=== PATIENT | female | born 1940 | race Caucasian/White ===

== ENCOUNTER 2018-08-14 17:00 | Emergency (ER) | payer OTHER ==
[~2018-08-14] VITALS: Ht 167.6 cm; Wt 81.7 kg
[~2018-08-14 17:00] MED LIST: ACET325 PO; BISA5EC PO; GLYCAS PR; LEVSOD150 PO; [UNRECOGNIZED DRUG - OTHER]
[2018-08-14 17:37] LABS: Source, Urine Clean Catch
[2018-08-14 17:51] LABS: Appearance, Urine Turbid (Clear); Bilirubin, Urine Neg (Neg); Blood, Urine 5+ (Neg); Color, Urine Yellow (P-Yellow); Glucose Qualitative, Urine Neg (Neg); Ketones, Urine 1+ (Neg); Leukocyte Esterase, Urine 3+ (Neg); Nitrite, Urine Pos (Neg); Protein, Urine 3+ (Neg); Urobilinogen, Urine 1+ (Normal)
[2018-08-14 18:11] LABS: BASOPHILS ABSOLUTE AUTO 0.03 K/mm3 (0.00-0.23); BASOPHILS PERCENT AUTO 0 % (0-2); EOSINOPHILS ABSOLUTE AUTO 0.16 K/mm3 (0.00-0.68); EOSINOPHILS PERCENT AUTO 2 % (0-6); Hematocrit 40.8 % (33.0-51.0); Hemoglobin 13.5 g/dL (11.5-16.0); IMMATURE GRAN ABSOLUTE AUTO 0.01 K/mm3 (0.00-0.10); IMMATURE GRAN PERCENT AUTO 0 % (0-1); LYMPHOCYTES ABSOLUTE AUTO 1.98 K/mm3 (0.84-5.20); LYMPHOCYTES PERCENT AUTO 28 % (21-46); MONOCYTES ABSOLUTE AUTO 0.55 K/mm3 (0.16-1.47); MONOCYTES PERCENT AUTO 8 % (4-13); Mean Corpuscular HGB Conc 33.1 g/dL (31.5-36.5); Mean Corpuscular Volume 94 fL (80-100); Mean Platelet Volume 8.9 fL (9.1-12.4); NEUTROPHILS ABSOLUTE AUTO 4.34 K/mm3 (1.96-9.15); NEUTROPHILS PERCENT AUTO 61 % (41-73); Platelet Count 195 K/mm3 (150-400); RDW Coefficient Variation 15.1 % (11.7-14.2); Red Blood Cell Count 4.35 M/mm3 (3.80-5.20); White Blood Cell Count 7.07 K/mm3 (4.00-11.30)
[2018-08-14 18:23] LABS: White Blood Cells, Urine TNTC /hpf (0-5)
[2018-08-14 18:24] LABS: Bacteria Many /hpf; Squamous Epithelial Cells Few /hpf (Few)
[2018-08-14 18:28] LABS: International Normalized Ratio 1.05; Prothrombin Time Results 10.8 Sec (9.7-11.5)
[2018-08-14 18:33] LABS: Alanine Aminotransfer (ALT/SGP 40 U/L (12-78); Albumin, Blood 3.9 g/dL (3.4-5.0); Alk Phos 69 U/L (50-136); Anion Gap 7 mmol/L (6-16); Aspartate Aminotrans (AST/SGOT 71 U/L (12-37); Bilirubin, Total 0.5 mg/dL (0.1-1.0); Blood Urea Nitrogen 25 mg/dL (8-24); Bun/Creatinine Ratio 17.6 (12.0-20.0); CO2, Blood 27 mmol/L (21-32); Calcium, Blood 9.1 mg/dL (8.5-10.1); Chloride, Blood 108 mmol/L (98-108); Creatinine, Blood 1.42 mg/dL (0.40-1.00); Ethanol (Alcohol), Blood, Med <3 mg/dL; Globulin, Blood 3.8 g/dL (2.2-4.0); Glomerular Filtration Rate 38 (60-); Glucose, Blood 95 mg/dL (70-99); Potassium, Blood 3.2 mmol/L (3.5-5.5); Sodium, Blood 142 mmol/L (136-145); Total Protein, Blood 7.7 g/dL (6.4-8.2)
[2018-08-14] MEDS ORDERED: Synthroid100 MCG PO (19:29)
[2018-08-14] MEDS ORDERED: Keflex500 MG PO (19:29)
== END 2018-08-14 20:47 | disposition home or self-care (01) ==
LOC: ER 17:00
PROVIDERS: Physician Assistant
DX: N39.0 Urinary tract infection, site not specified (principal); I51.7 Cardiomegaly; E03.9 Hypothyroidism, unspecified; I10 Essential (primary) hypertension; Z79.899 Other long term (current) drug therapy
CPT/HCPCS: 36415; 51701; 70450; 71045; 80053; 81001; 83880; 84439; 84443; 85025; 85610; 87077; 87086; 87186; 93005; 93010; 96361; 96365; 99285-25; G0480; J0696; J7120

== ENCOUNTER 2018-08-25 17:00 | Inpatient (IN) | payer OTHER ==
[~2018-08-25] VITALS: Ht 167.6 cm; Wt 93.7 kg
[~2018-08-25 17:00] MED LIST changes: +Keflex500 MG PO; +Synthroid100 MCG PO
[2018-08-25 17:39] LABS: Source, Urine Clean Catch
[2018-08-25 17:49] LABS: Appearance, Urine Clear (Clear); Bilirubin, Urine Neg (Neg); Blood, Urine 1+ (Neg); Color, Urine Amber (P-Yellow); Glucose Qualitative, Urine Neg (Neg); Ketones, Urine Neg (Neg); Leukocyte Esterase, Urine Neg (Neg); Nitrite, Urine Neg (Neg); Protein, Urine 2+ (Neg); Urobilinogen, Urine 1+ (Normal)
[2018-08-25 17:51] LABS: BASOPHILS ABSOLUTE AUTO 0.04 K/mm3 (0.00-0.23); BASOPHILS PERCENT AUTO 0 % (0-2); EOSINOPHILS ABSOLUTE AUTO 0.03 K/mm3 (0.00-0.68); EOSINOPHILS PERCENT AUTO 0 % (0-6); Hemoglobin 12.4 g/dL (11.5-16.0); IMMATURE GRAN PERCENT AUTO 1 % (0-1); LYMPHOCYTES ABSOLUTE AUTO 1.05 K/mm3 (0.84-5.20); LYMPHOCYTES PERCENT AUTO 6 % (21-46); MONOCYTES PERCENT AUTO 5 % (4-13); Mean Corpuscular HGB Conc 32.6 g/dL (31.5-36.5); Mean Corpuscular Volume 95 fL (80-100); Mean Platelet Volume 9.4 fL (9.1-12.4); NEUTROPHILS ABSOLUTE AUTO 14.68 K/mm3 (1.96-9.15); NEUTROPHILS PERCENT AUTO 87 % (41-73); Platelet Count 212 K/mm3 (150-400); RDW Coefficient Variation 15.7 % (11.7-14.2)
[2018-08-25 17:58] LABS: Bacteria Not Seen /hpf; Red Blood Cells, Urine Not Seen /hpf (0-2); Squamous Epithelial Cells Many /hpf (Few); White Blood Cells, Urine 0-2 /hpf (0-5)
[2018-08-25 18:04] LABS: Albumin, Blood 3.3 g/dL (3.4-5.0); Albumin/Globulin Ratio 0.8 (0.8-1.8); Bilirubin, Total 1.9 mg/dL (0.1-1.0); Bun/Creatinine Ratio 36.2 (12.0-20.0); Calcium, Blood 8.3 mg/dL (8.5-10.1); Creatinine, Blood 0.97 mg/dL (0.40-1.00); Potassium, Blood 2.9 mmol/L (3.5-5.5); Total Protein, Blood 7.3 g/dL (6.4-8.2)
[2018-08-25 19:48] LABS: Free Thyroxine 0.93 ng/dL (0.70-1.60)
[2018-08-25 19:49] LABS: Triiodothyronine, Free 1.02 pg/mL (2.18-3.98)
[2018-08-26 05:37] LABS: Hematocrit 34.5 % (33.0-51.0); Hemoglobin 11.2 g/dL (11.5-16.0); Mean Corpuscular HGB 31.8 pg (26.0-34.0); Mean Corpuscular HGB Conc 32.5 g/dL (31.5-36.5); Mean Corpuscular Volume 98 fL (80-100); Mean Platelet Volume 9.4 fL (9.1-12.4); Platelet Count 177 K/mm3 (150-400); RDW Standard Deviation 57.4 fL (35.1-46.3); Red Blood Cell Count 3.52 M/mm3 (3.80-5.20); White Blood Cell Count 15.11 K/mm3 (4.00-11.30)
[2018-08-26 05:53] LABS: Alanine Aminotransfer (ALT/SGP 25 U/L (12-78); Albumin, Blood 2.9 g/dL (3.4-5.0); Albumin/Globulin Ratio 0.8 (0.8-1.8); Alk Phos 62 U/L (50-136); Anion Gap 8 mmol/L (6-16); Aspartate Aminotrans (AST/SGOT 27 U/L (12-37); Bilirubin, Total 1.2 mg/dL (0.1-1.0); Blood Urea Nitrogen 35 mg/dL (8-24); CO2, Blood 24 mmol/L (21-32); Calcium, Blood 7.3 mg/dL (8.5-10.1); Chloride, Blood 116 mmol/L (98-108); Creatinine, Blood 0.92 mg/dL (0.40-1.00); Globulin, Blood 3.5 g/dL (2.2-4.0); Glomerular Filtration Rate >60 (60-); Glucose, Blood 103 mg/dL (70-99); Potassium, Blood 3.2 mmol/L (3.5-5.5); Sodium, Blood 148 mmol/L (136-145); Total Protein, Blood 6.4 g/dL (6.4-8.2)
--- NOTE | 2018-08-26 07:37 | NUR ---
PT NEW ADMIT THIS SHIFT FOR PERF SIGMOID COLON. PT VSS SINCE ARRIVING TO FLOOR. HR AFIB 60'S. 2LO2 NC PLACED TO KEEP SATS >90% ABD MOD DISTENDED, PT MED FOR PAIN X1, DENIED N/V, IS PASSING FLATUS AND UNFORMED BM. PT NPO, IVF AND ABX CONT PER ORDERS. PT ALERT, IS CONFUSED AT TIMES. PT USING CALL LIGHT AT TIMES, BED ALARM ON FOR SAFETY. SURG CONSULT CALLED IN, REP GIVEN TO DAY RN.
--- NOTE | 2018-08-26 14:48 | NUR ---
patient gave permission to this clinical nursing professor to observe and assist with her care on 08/27/2018 from [id number].
--- NOTE | 2018-08-26 17:01 | NUR ---
SHIFT SUMMARY PT HAS HAD NO CHANGES THIS SHIFT. CONTINUES TO HAVE MOD ABD DISTENTION, PAIN, AND SLIGHTLY NAUSEATED THIS SHIFT. DENIES PASSING FLATUS OR BM. PT WAS REFUSING SURGICAL INTERVENTION. HOWEVER, NOW HAS DECIDED THAT SHE WOULD LIKE TO GO FORWARD WITH SURGERY. IVF RUNNING PER EMAR. MEDICATED WITH 25 FENT AND 4MG ZOFRAN ONCE THIS SHIFT.
[2018-08-27 05:42] LABS: BASOPHILS ABSOLUTE AUTO 0.02 K/mm3 (0.00-0.23); BASOPHILS PERCENT AUTO 0 % (0-2); EOSINOPHILS ABSOLUTE AUTO 0.05 K/mm3 (0.00-0.68); EOSINOPHILS PERCENT AUTO 0 % (0-6); Hematocrit 32.3 % (33.0-51.0); Hemoglobin 10.4 g/dL (11.5-16.0); IMMATURE GRAN ABSOLUTE AUTO 0.08 K/mm3 (0.00-0.10); IMMATURE GRAN PERCENT AUTO 1 % (0-1); LYMPHOCYTES ABSOLUTE AUTO 1.13 K/mm3 (0.84-5.20); LYMPHOCYTES PERCENT AUTO 10 % (21-46); MONOCYTES ABSOLUTE AUTO 0.66 K/mm3 (0.16-1.47); MONOCYTES PERCENT AUTO 6 % (4-13); Mean Corpuscular HGB 31.8 pg (26.0-34.0); Mean Corpuscular HGB Conc 32.2 g/dL (31.5-36.5); Mean Corpuscular Volume 99 fL (80-100); Mean Platelet Volume 9.3 fL (9.1-12.4); NEUTROPHILS ABSOLUTE AUTO 9.59 K/mm3 (1.96-9.15); NEUTROPHILS PERCENT AUTO 83 % (41-73); Platelet Count 193 K/mm3 (150-400); RDW Coefficient Variation 16.3 % (11.7-14.2); RDW Standard Deviation 59.7 fL (35.1-46.3); Red Blood Cell Count 3.27 M/mm3 (3.80-5.20); White Blood Cell Count 11.53 K/mm3 (4.00-11.30)
[2018-08-27 06:11] LABS: Albumin, Blood 2.5 g/dL (3.4-5.0); Anion Gap 9 mmol/L (6-16); Blood Urea Nitrogen 28 mg/dL (8-24); Bun/Creatinine Ratio 32.4 (12.0-20.0); CO2, Blood 23 mmol/L (21-32); Calcium, Blood 7.4 mg/dL (8.5-10.1); Chloride, Blood 117 mmol/L (98-108); Creatinine, Blood 0.86 mg/dL (0.40-1.00); Glomerular Filtration Rate >60 (60-); Glucose, Blood 138 mg/dL (70-99); Magnesium, Blood 2.5 mg/dL (1.6-2.4); Phosphorus, Blood 1.7 mg/dL (2.5-4.9); Potassium, Blood 3.2 mmol/L (3.5-5.5); Sodium, Blood 149 mmol/L (136-145)
--- NOTE | 2018-08-27 07:51 | NUR ---
SUMMARY: PERFORATED COLON ANTICIPATE TO GO TO SURGERY TODAY. MAINTAINS NPO STATUS AND IV PATENCY. VSS, AFEBRILE. DENIES PAIN, N/V. NO ACUTE CHANGED THIS SHIFT.
--- NOTE | 2018-08-27 10:34 | NUR ---
Received permission from patient to access her chart and administer care as needed.
--- NOTE | 2018-08-27 13:36 | NUR ---
History, Chart, Medications and Allergies reviewed before start of procedure. Patient confirms NPO status and agrees with scheduled surgery.
--- NOTE | 2018-08-27 15:42 | NUR ---
08/27/18 1542 Dilia Rollins PT ON SCHEDULED ANTIBIOTIC
--- NOTE | 2018-08-27 18:47 | NUR ---
PT TO PACU ON VENT DR HAMLIN AND [facility] AT BEDSIDE.
--- NOTE | 2018-08-27 19:19 | NUR ---
TRANSFER PT BEING TRANSFERED TO ICU FROM [place]. ATTEMPTED TO CALL REPORT AT 1845.
--- NOTE | 2018-08-27 19:25 | NUR ---
PT ARRIVED TO ICU 12 FROM PACU. PT IS INTUBATED. NO SEDATION OR PAIN MEDS ORDERED. SPOKE WITH DR. HALL IN PERSON WHO WILL BE PUTTING IN ORDERS. ALSO CONSULT FOR DR. SANCHEZ THAT IS BEING CALLED TO HIS CELL PHONE NOW. PT IS ABLE TO NOD HEAD TO QUESTIONS APPROPRIATELY. FOLLOWING SOME SIMPLE COMMANDS. PT WILL GRAB AT ABD AND NODS YES TO PAIN. WILL MEDICATE WHEN POSSIBLE.
--- NOTE | 2018-08-27 19:34 | NUR ---
TRANSFERED TO ICU WHEN ROOM AVAILABLE PER DR JOSHUA INSTUCTIONS. RT AT BEDSIDE WITH 2 RN'S VENT AND MONITOR IN PLACE . NO CHANGES ACCURED DURING TRANSPORT REPORT GIVEN TO PHAM LOGAN. DR HALL AWARE OF PT TRANSFER TO ICU PREVENA INTACT . KIESHA DRNG LIGHT PINK FLUID . OSTOMY WITH NO DRNG NOTED. STOMA PINKISH COLOR CORRALES DRNG LORENA URINE
[2018-08-27 20:58] LABS: PCO2 Arterial 38.4 mmHg (35-45); pH Blood Arterial 7.36 (7.35-7.45)
[2018-08-28 04:10] LABS: BASOPHILS ABSOLUTE AUTO 0.02 K/mm3 (0.00-0.23); BASOPHILS PERCENT AUTO 0 % (0-2); EOSINOPHILS PERCENT AUTO 0 % (0-6); Hematocrit 32.4 % (33.0-51.0); Hemoglobin 10.1 g/dL (11.5-16.0); IMMATURE GRAN ABSOLUTE AUTO 0.04 K/mm3 (0.00-0.10); IMMATURE GRAN PERCENT AUTO 0 % (0-1); LYMPHOCYTES ABSOLUTE AUTO 0.72 K/mm3 (0.84-5.20); LYMPHOCYTES PERCENT AUTO 7 % (21-46); MONOCYTES ABSOLUTE AUTO 0.77 K/mm3 (0.16-1.47); MONOCYTES PERCENT AUTO 7 % (4-13); Mean Corpuscular HGB 30.7 pg (26.0-34.0); Mean Corpuscular HGB Conc 31.2 g/dL (31.5-36.5); Mean Corpuscular Volume 99 fL (80-100); Mean Platelet Volume 9.7 fL (9.1-12.4); NEUTROPHILS ABSOLUTE AUTO 9.27 K/mm3 (1.96-9.15); NEUTROPHILS PERCENT AUTO 86 % (41-73); Platelet Count 192 K/mm3 (150-400); RDW Coefficient Variation 16.5 % (11.7-14.2); RDW Standard Deviation 60.2 fL (35.1-46.3); Red Blood Cell Count 3.29 M/mm3 (3.80-5.20); White Blood Cell Count 10.82 K/mm3 (4.00-11.30)
[2018-08-28 04:29] LABS: Albumin, Blood 2.5 g/dL (3.4-5.0); Anion Gap 9 mmol/L (6-16); Blood Urea Nitrogen 23 mg/dL (8-24); Bun/Creatinine Ratio 30.1 (12.0-20.0); CO2, Blood 22 mmol/L (21-32); Calcium, Blood 6.6 mg/dL (8.5-10.1); Chloride, Blood 116 mmol/L (98-108); Creatinine, Blood 0.76 mg/dL (0.40-1.00); Glomerular Filtration Rate >60 (60-); Glucose, Blood 163 mg/dL (70-99); Phosphorus, Blood 2.8 mg/dL (2.5-4.9); Potassium, Blood 3.7 mmol/L (3.5-5.5); Sodium, Blood 147 mmol/L (136-145)
--- NOTE | 2018-08-28 06:25 | NUR ---
SUMMARY PT INTUBATED AND SEDATED WITH PROPOFOL. WAS BROUGHT TO ICU AFTER COLECTOMY IN OR. HAS COLOSTOMY TO L ABD THAT HAS BEEFY RED STOMA. ONLY PUT OUT SCANT AMT OF SEROSANGUINOUS FLUID. HAS WOUND VAC TO MID ABD THAT HAS GOOD SEAL. NO OUTPUT YET. PT DID WELL DURING SEDATION VACATION AND SBT. FOLLOWS COMMANDS WELL AND STAYS CALM. ABLE TO NOD YES OR NO TO QUESIONS AND MAKE NEEDS KNOWN.
--- NOTE | 2018-08-28 08:52 | NUR ---
CARE ASSUMED CARE AND REPORT ASSUMED FROM PHAM LOGAN. PT INTUBATED AND SEDATED. VENT AC 16, TV 400, P 5, FIO2 30%. PROPOFOL GTT INFUSING AT 25 MCG/KG/MIN. NO ACUTE S/S PAIN AT THIS TIME. LUNG SOUNDS CLEAR. AFIB, HR 80S. BP STABLE. AFEBRILE. MIDLINE INCISION REMAINS INTACT AND CLOSED WITH WOUND VAC. KIESHA DRAIN HAS SEROSANGINOUS FLUID; WILL MONITOR. OSTOMY DRAINING AND INTACT WITH BEEFY, RED STOMA. WILL MEDICATE WITH FENTANYL PRN. BUE REMAIN RESTRAINED. WILL CONTINUE TO MONITOR.
--- NOTE | 2018-08-28 11:56 | NUR ---
REASSESSMENT PT AWAKE AND ALERT. SEDATION OFF SINCE 1000. PT SITTING UPRIGHT IN BED. VENT ON PS 7,PEEP 5, FIO2 30%. LUNG SOUNDS CLEAR. PT ABLE TO FOLLOW COMMANDS. FENTANYL GIVEN FOR PAIN. BUE REMAIN RESTRAINED. WILL CONTINUE TO MONITOR. WILL EXTUBTE SOON.
--- NOTE | 2018-08-28 13:32 | NUR ---
EXTUBATION 1330 - PT EXTUBATED AT THIS TIME. SMOOTH EXTUBATION. SPO2 97% ON 3L NC. PT ANSWERING QUESTIONS APPROPRIATELY. RESTRAINTS DISCONTINUED. WILL CONTINUE TO MONITOR.
--- NOTE | 2018-08-28 16:43 | NUR ---
REASSESSMNET PT SITTING UP IN BED WATCHING TV. DENIES PAIN AT THIS TIME. EDUCATED ON USE OF INCENTIVE SPIROMETER AND ENCOURAGED USE OF. VSS. AFIB, HR 95-110. LR INFUSING AT 75 ML/HR PER ORDER. CATH CARE COMPLETED. A/O X3. KIESHA DRAIN AND WOUND VAC DRAINING APPROPRIATELY. WILL CONTINUE TO MONITOR.
--- NOTE | 2018-08-28 17:29 | NUR ---
HAND OFF/TRANSFER HAND OFF REPORT CALLED TO MICHAEL LOGAN ON SURGICAL FLOOR AT THIS TIME. I/O'S COMPLETED BEFORE TRANSFERRING PT. PT TO BE TRANSFERRED TO ROOM 229.
--- NOTE | 2018-08-28 17:55 | NUR ---
ICU TRANSFER PT ARRIVAL TO UNIT. PT IS PLEASANTLY CONFUSED, BUT IS ALERT AND ORIENTED TO SELF. PT DENIES PAIN, N/V, SOB. WOUND VAC TO ABD IS CDI. KIESHA COMPRESSED AND EMPTY AT THIS TIME. OSTOMY IN PLACE AND STOMA BEEFY RED. NO OUTPUT NOTED AT THIS TIME. IVF INFUSING PER ORDERS. PT OFFERED ICE CHIPS. ORIENTED TO ROOM AND CALL LIGHT. BED ALARM ON FOR SAFETY. WILL CONT TO MONITOR.
[2018-08-29 05:04] LABS: BASOPHILS ABSOLUTE AUTO 0.02 K/mm3 (0.00-0.23); BASOPHILS PERCENT AUTO 0 % (0-2); EOSINOPHILS ABSOLUTE AUTO 0.06 K/mm3 (0.00-0.68); EOSINOPHILS PERCENT AUTO 1 % (0-6); Hematocrit 30.1 % (33.0-51.0); Hemoglobin 9.6 g/dL (11.5-16.0); IMMATURE GRAN ABSOLUTE AUTO 0.12 K/mm3 (0.00-0.10); IMMATURE GRAN PERCENT AUTO 1 % (0-1); LYMPHOCYTES ABSOLUTE AUTO 1.45 K/mm3 (0.84-5.20); LYMPHOCYTES PERCENT AUTO 13 % (21-46); MONOCYTES ABSOLUTE AUTO 1.05 K/mm3 (0.16-1.47); MONOCYTES PERCENT AUTO 9 % (4-13); Mean Corpuscular HGB 31.4 pg (26.0-34.0); Mean Corpuscular HGB Conc 31.9 g/dL (31.5-36.5); Mean Corpuscular Volume 98 fL (80-100); Mean Platelet Volume 9.7 fL (9.1-12.4); NEUTROPHILS ABSOLUTE AUTO 8.47 K/mm3 (1.96-9.15); NEUTROPHILS PERCENT AUTO 76 % (41-73); Platelet Count 204 K/mm3 (150-400); RDW Coefficient Variation 16.2 % (11.7-14.2); Red Blood Cell Count 3.06 M/mm3 (3.80-5.20); White Blood Cell Count 11.17 K/mm3 (4.00-11.30)
[2018-08-29 06:07] LABS: Albumin, Blood 2.4 g/dL (3.4-5.0); Anion Gap 7 mmol/L (6-16); Blood Urea Nitrogen 21 mg/dL (8-24); Bun/Creatinine Ratio 21.7 (12.0-20.0); CO2, Blood 26 mmol/L (21-32); Calcium, Blood 7.2 mg/dL (8.5-10.1); Chloride, Blood 115 mmol/L (98-108); Creatinine, Blood 0.97 mg/dL (0.40-1.00); Glomerular Filtration Rate 59 (60-); Glucose, Blood 102 mg/dL (70-99); Phosphorus, Blood 1.6 mg/dL (2.5-4.9); Potassium, Blood 3.4 mmol/L (3.5-5.5); Sodium, Blood 148 mmol/L (136-145)
--- NOTE | 2018-08-29 06:53 | NUR ---
SUMMARY I CALLED DOCTOR HARTMANN REGARDING HX AND CURRENT I/O,PT C/O SOB WITH CRACKLES T/O LUNG DOMINGUEZ. PT CURRENTLY WAS ON R/A AT 91% AND WAS EXTUBATED TODAY. NO NEW ORDERS WERE GIVEN AT THAT TIME. HE VERB IF PT REQUIRED O2,HAVING DECREASED SATS, OR INCREASED SOB TO CALL BACK.2400 VS PT R/A SATS 87-88% REQUIRING 2 L N/C WITH SATS 91%. ONLY 175 ML OUT SO FAR. I CALLED DR BUTLER AND RECEIVED ORDER FOR LASIX 40 MG IV X 1.I GAVE PER ORDERS WTIH RETURN OF TOTAL 1275 ML OUT SINCE LASIX GIVEN AND URINE BECOMING YELLOW IN COLOR.PT REPORTS LESS SOB 2L SATS 95% AND ACTUALLY SLEPT SOME.
--- NOTE | 2018-08-29 15:45 | NUR ---
ASSUMED PT CARE. BEDSIDE REPORT WITH STONE LOGAN. PT HAS VERY MOIST COUGH.
--- NOTE | 2018-08-29 15:50 | NUR ---
MIRANDA RN TO ROOM TO DISCUSS D/C TO A INTERMEDIATE FACILITY WITH PT. PT AGREEABLE TO GO TO [facility]. PT REQUESTING PAIN MEDS.
--- NOTE | 2018-08-29 16:21 | NUR ---
PT CONTINUES TO COUGH, PT MEDICATED WITH NORCO FOR C/O ABD PAIN. CALL LIGHT IN REACH. PT STATES "IT FEELS LIKE I NEED TO HAVE A BOWEL MOVEMENT" EXPLAINED TO PT THAT SHE HAS A COLOSTOMY BAG AND THAT STAFF WILL CHECK ITS OUTPUT MULT TIMES.
--- NOTE | 2018-08-29 17:25 | NUR ---
ABX STARTED PER EMAR. DINNER TRAY DELIVERED.
--- NOTE | 2018-08-29 18:20 | NUR ---
ALL IV INFUSIONS COMPLETE. IVS FLUSHED AND CAPPED. PT IN NO DISTRESS. DENIES NEEDS. NO OUTPUT TO COLOSTOMY. PT STATES PAIN MANAGED AT THIS TIME. CALL LIGHT IN REACH. WILL CONT TO MONITOR.
--- NOTE | 2018-08-29 18:55 | NUR ---
REPORT TO SHLOMO LOGAN.
--- NOTE | 2018-08-29 21:40 | NUR ---
PT STATED SHE WAS HEARING A CAT OUTSIDE HER ROOM. EXPLAINED THERE WAS NO CAT PT TRYING TO REST AGAIN.
--- NOTE | 2018-08-30 00:15 | NUR ---
I CALLED DR BUTLER REGARDING PTS CONTINUED NEED FOR USE OF OXYGEN,MILD JVD,UNBALANCED I/O- NOTING FLUID VOLUME EXCESS.PTS LUNG DOMINGUEZ WITH CRACKLES AND BP INCREASING.SO FAR 175 ML ONLY OUT PER CORRALES.I RECEIVED ORDER FOR LASIX 40 MG IV.
[2018-08-30 04:41] LABS: Hematocrit 30.7 % (33.0-51.0); Hemoglobin 9.9 g/dL (11.5-16.0); Mean Corpuscular HGB 31.1 pg (26.0-34.0); Mean Corpuscular HGB Conc 32.2 g/dL (31.5-36.5); Mean Corpuscular Volume 97 fL (80-100); Mean Platelet Volume 9.6 fL (9.1-12.4); Platelet Count 237 K/mm3 (150-400); RDW Coefficient Variation 15.9 % (11.7-14.2); RDW Standard Deviation 57.4 fL (35.1-46.3); Red Blood Cell Count 3.18 M/mm3 (3.80-5.20); White Blood Cell Count 9.12 K/mm3 (4.00-11.30)
[2018-08-30 05:00] LABS: Albumin, Blood 2.4 g/dL (3.4-5.0); Anion Gap 7 mmol/L (6-16); Blood Urea Nitrogen 19 mg/dL (8-24); Bun/Creatinine Ratio 20.4 (12.0-20.0); CO2, Blood 27 mmol/L (21-32); Calcium, Blood 7.4 mg/dL (8.5-10.1); Chloride, Blood 110 mmol/L (98-108); Creatinine, Blood 0.93 mg/dL (0.40-1.00); Glomerular Filtration Rate >60 (60-); Glucose, Blood 95 mg/dL (70-99); Phosphorus, Blood 1.6 mg/dL (2.5-4.9); Potassium, Blood 3.2 mmol/L (3.5-5.5); Sodium, Blood 144 mmol/L (136-145)
[2018-08-30 05:15] LABS: BAND PERCENT MAN 1 % (0-8); BASOPHILS ABSOLUTE MAN 0.09 K/mm3 (0.00-0.23); BASOPHILS PERCENT MAN 1 % (0-2); EOSINOPHILS ABSOLUTE MAN 0.18 K/mm3 (0.00-0.68); EOSINOPHILS PERCENT MAN 2 % (0-6); LYMPHOCYTES ABSOLUTE MAN 1.82 K/mm3 (0.84-5.20); LYMPHOCYTES PERCENT MAN 20 % (21-46); MONOCYTES ABSOLUTE MAN 0.63 K/mm3 (0.16-1.47); MONOCYTES PERCENT MAN 7 % (4-13); NEUTROPHILS ABSOLUTE MAN 6.38 K/mm3 (1.96-9.15); SEG NEUTROPHILS PERCENT MAN 69 % (41-73); TOTAL CELLS COUNTED 100
--- NOTE | 2018-08-30 07:23 | NUR ---
SUMMARY PT TOLERATING CLR LIQS PO. NORCO EFFECTIVE FOR PAIN . IMPROVED URINARY OUTPUT SINCE LASIX IV. DAY RN AGREES TO FOLLOW UP ON NEED TO CONTINUE CORRALES OR D/C WITH I/O INBALANCES.
--- NOTE | 2018-08-30 07:25 | NUR ---
recvd report from previous rn huyen, pt sleeping in room, call light within reach, bed in lowest position, bed rails up x 2
--- NOTE | 2018-08-30 08:50 | NUR ---
dr elils to round on pt
--- NOTE | 2018-08-30 15:43 | NUR ---
respiratory therapy in with pt to provide breathing treatment
--- NOTE | 2018-08-30 18:08 | NUR ---
SHIFT SUMMARY: VSS, NO ACUTE CHANGES. PT REMAINED ORIENTED TO PERSON/PLACE/SITUATION, AT TIMES MAKES STATEMENTS THAT DO NOT MAKE SENSE, BUT WILL BE EASILY REORIENTED. PT RECEIVED VISITOR X 2, WHO DISCUSSED WITH THE PT THE CARE OF HER CATS AT HOME (A NEIGHBOR IS DOING IT) WELL WHAT THE PT WOULD LIKE TO DO FOR RECOVERY FOLLOWING DISCHARGE FROM THE HOSPITAL. PT MEDICATED PER MAR FOR ABD PAIN THIS SHIFT, STATES PAIN CONTROLLED TO HER SATISFACTION ON REASSESSMENT. PT TOLERATED CLEAR LIQUID WITH NO N/V. PT WITH MINIMAL FECAL OUTPUT IN OSTOMY OF BROWN SEEDY FECES. CORRALES CATHETER REMAINED PATENT/DRAINING DARK YELLOW URINE, 600 ML OUT AT START OF SHIFT, 250 ML AT END OF SHIFT. PT'S LUNGS WITH CRACKLES IN BASES, COARS IN UPPER LOBES. PT RECIEVED BREATHING TXS X 2, IS COUGHING UP MUCUS, SMALL AMOUNTS OF YELLOW/GREEN OPAQUE SPUTUM. HYPOACTIVE BOWEL TONES. PT UP IN CHAIR WITH PHYSICAL THERAPY, REMAINED IN RECLINER FOR MEALS THIS SHIFT.
--- NOTE | 2018-08-30 23:02 | NUR ---
PROVIDER COMMUNICATION SIGIFREDO NOTIFIED PT BLOOD SUGAR 500 AND 435. ORDERS TO TREAT PER EMAR SS AND RECHECK IN 1 HR. NOTIFY PROVIDER IF RE-CHECK IS OVER 300.
[2018-08-31 04:10] LABS: Hematocrit 31.8 % (33.0-51.0); Hemoglobin 10.5 g/dL (11.5-16.0); Mean Corpuscular Volume 97 fL (80-100); Mean Platelet Volume 9.3 fL (9.1-12.4); Platelet Count 271 K/mm3 (150-400); RDW Coefficient Variation 15.2 % (11.7-14.2); RDW Standard Deviation 54.5 fL (35.1-46.3); Red Blood Cell Count 3.28 M/mm3 (3.80-5.20); White Blood Cell Count 8.59 K/mm3 (4.00-11.30)
--- NOTE | 2018-08-31 04:41 | NUR ---
SHIFT SUMMARY PT A&O X4, FORGETFUL AT TIMES. POD# 3 STERCORAL ULCER REPAIR AND NEW OSTOMY; BEEFY STOMA; FLATUS NOTED IN COLLECTION BAG. ABD SOFT; BT X4; PREVENA VAC TO ABD SITE SEAL INTACT;SS DRAINAGE NOTED. LIGHT SS DRAINAGE IN KIESHA, 40 ML THIS SHIFT; DRAIN SPONGES REMOVED AND REPLACED X1. CORRALES PATENT, WILL DC THIS AM. EXP WHEEZE BILAT; PT DENIES SOB; OCC COUGH NOTED; RA; O2 SATS OVER 90%. PT STS SHE IS WORRIED ABOUT HER CATS. CALL LIGHT IN REACH; PT DEMONSTRATES USE. SCD'S TO BLE'S. BED ALARM AND SIDE RAILS X3 FOR SAFETY; PT REPOSITIONED TOLERATED. WCTM UNTIL REPORT TO DAY SHIFT RN.
[2018-08-31 05:30] LABS: BAND PERCENT MAN 4 % (0-8); BASOPHILS PERCENT MAN 0 % (0-2); EOSINOPHILS ABSOLUTE MAN 0.25 K/mm3 (0.00-0.68); EOSINOPHILS PERCENT MAN 3 % (0-6); LYMPHOCYTES % ATYPICAL MANUAL 1 % (0-0); LYMPHOCYTES ABSOLUTE MAN 1.46 K/mm3 (0.84-5.20); LYMPHOCYTES PERCENT MAN 16 % (21-46); MONOCYTES ABSOLUTE MAN 0.25 K/mm3 (0.16-1.47); MONOCYTES PERCENT MAN 3 % (4-13); NEUTROPHILS ABSOLUTE MAN 6.61 K/mm3 (1.96-9.15); SEG NEUTROPHILS PERCENT MAN 73 % (41-73); TOTAL CELLS COUNTED 100
--- NOTE | 2018-08-31 07:10 | NUR ---
0535 ADL NOTE; PT REFUSING CARE; DAY SHIFT WILL MAGGIEED ANTONI Seo/Govind.
[2018-08-31 10:38] LABS: Albumin, Blood 2.3 g/dL (3.4-5.0); Anion Gap 8 mmol/L (6-16); Blood Urea Nitrogen 11 mg/dL (8-24); Bun/Creatinine Ratio 14.6 (12.0-20.0); CO2, Blood 27 mmol/L (21-32); Calcium, Blood 7.4 mg/dL (8.5-10.1); Chloride, Blood 108 mmol/L (98-108); Creatinine, Blood 0.75 mg/dL (0.40-1.00); Glomerular Filtration Rate >60 (60-); Glucose, Blood 91 mg/dL (70-99); Phosphorus, Blood 1.7 mg/dL (2.5-4.9); Potassium, Blood 3.1 mmol/L (3.5-5.5); Sodium, Blood 143 mmol/L (136-145)
--- NOTE | 2018-08-31 16:56 | NUR ---
SHIFT SUMMARY PT POD 4 COLECTOMY W/OSTOMY. PREVENA WOUND VAC REMOVED BY PATIENT THIS SHIFT-MD NOTIFIED, MEDIPORE IN PLACE AT THIS TIME, C/D/I. SMALL AMOUNT OF BROWN LIQUID DRAINAGE PRESENT IN OSTOMY BAG, CHANGED THIS SHIFT. HAS DENIED PAIN THIS SHIFT. UP TO CHAIR AND WORKED BRIEFLY WITH THERAPY. HAS HAD MOMENTS WHERE SHE REFUSES CARE BUT WILLING TO PARTICIPATE AFTER SOME EDUCATION AND REDIRECTING.
[2018-09-01 06:55] LABS: BASOPHILS ABSOLUTE AUTO 0.05 K/mm3 (0.00-0.23); BASOPHILS PERCENT AUTO 1 % (0-2); EOSINOPHILS ABSOLUTE AUTO 0.28 K/mm3 (0.00-0.68); EOSINOPHILS PERCENT AUTO 3 % (0-6); Hematocrit 32.2 % (33.0-51.0); Hemoglobin 10.7 g/dL (11.5-16.0); IMMATURE GRAN ABSOLUTE AUTO 0.28 K/mm3 (0.00-0.10); IMMATURE GRAN PERCENT AUTO 3 % (0-1); LYMPHOCYTES ABSOLUTE AUTO 1.69 K/mm3 (0.84-5.20); LYMPHOCYTES PERCENT AUTO 17 % (21-46); MONOCYTES ABSOLUTE AUTO 0.54 K/mm3 (0.16-1.47); MONOCYTES PERCENT AUTO 6 % (4-13); Mean Corpuscular HGB 31.8 pg (26.0-34.0); Mean Corpuscular HGB Conc 33.2 g/dL (31.5-36.5); Mean Corpuscular Volume 96 fL (80-100); Mean Platelet Volume 9.1 fL (9.1-12.4); NEUTROPHILS ABSOLUTE AUTO 6.94 K/mm3 (1.96-9.15); NEUTROPHILS PERCENT AUTO 71 % (41-73); Platelet Count 315 K/mm3 (150-400); RDW Coefficient Variation 15.1 % (11.7-14.2); RDW Standard Deviation 53.4 fL (35.1-46.3); Red Blood Cell Count 3.36 M/mm3 (3.80-5.20); White Blood Cell Count 9.78 K/mm3 (4.00-11.30)
[2018-09-01 07:08] LABS: Albumin, Blood 2.3 g/dL (3.4-5.0); Anion Gap 8 mmol/L (6-16); Blood Urea Nitrogen 12 mg/dL (8-24); Bun/Creatinine Ratio 14.6 (12.0-20.0); CO2, Blood 27 mmol/L (21-32); Calcium, Blood 7.5 mg/dL (8.5-10.1); Chloride, Blood 110 mmol/L (98-108); Creatinine, Blood 0.82 mg/dL (0.40-1.00); Glomerular Filtration Rate >60 (60-); Glucose, Blood 93 mg/dL (70-99); Phosphorus, Blood 1.6 mg/dL (2.5-4.9); Potassium, Blood 2.9 mmol/L (3.5-5.5); Sodium, Blood 145 mmol/L (136-145)
--- NOTE | 2018-09-01 07:24 | NUR ---
SHIFT SUMMARY PT A&O X4 T/O, NEEDED REORIENTED AT TIMES AND CHANGED TOPIC OF CONVERSATION MIDWAY OCCATIONALLY. POD#4 COLECTOM WITH OSTOMY, STOMA BEEFY RED, NO SIGNIFICANT STOOL OUT. ABD DRESSING DRY AND INTACT, NO INCREASED IN DRAINAGE OVER SHIFT. ABD SOFT; BT X4. CALL LIGHT IN REACH; PT DEMONSTRATES USE. SIDE RAILS X3; BED ALARM. SCD'S TO BLE'S. RA; WHEEZES AND COARSE SOUNDS BILAT LUNGS. PT DECLINED OFFER TO CALL RT; DENIES SOB. SATS OVER 90%. REPORT GIVEN TO DAY SHIFT RN.
--- NOTE | 2018-09-01 13:57 | NUR ---
FAMILY COMMUNICATION PT'S SON YANA CALLED. WANTING AN UPDATE ON PATIENT AND A TIMELINE FOR DISCHARGE TO SNF IF THAT IS STILL THE PLAN. UPDATED THE SON ON PTS CONDITION AND THAT TO THE BEST OF MY KNOWLEDGE THE PLAN WAS FOR PT TO GO TO SNF UPON DISCHARGE SHE IS STILL VERY WEAK AND UNABLE TO PARTICIPATE IN OSTOMY CARE. SON EXPRESSED CONCERNS OVER PTS ABILITY TO CARE FOR HERSELF-STATES THAT PT HAS A HISTORY OF MANIC BI-POLAR DISORDER AND THAT OVER THE YEARS IT HAS STEADILY GOTTEN WORSE AND THAT HER ABILITY TO CARE FOR HERSELF HAS DECLINED WELL. SON LEFT MOBILE PHONE NUMBER [phone] WELL HIS EMAIL [email or web address] HE STATES THAT THIS IS THE BEST FORM OF COMMUNICATION FOR NON-EMERGENT SITUATION.
--- NOTE | 2018-09-02 04:12 | NUR ---
SHIFT SUMMARY PT A&O X4 T/O SHIFT. POD#6 COLECTOMY AND COLOSTOMY; PASSING LIQUID BROWN STOOL AND FLATUS. MIDLINE ABD DRESSING DRAINING MODERATE AMOUNT OF LIGHT SS DRAINAGE; KIESHA DRAIN COLLECTING SAME DRAINAGE. MIDLINE DRESSING MANGED PER ORDERS. ABD SOFT; TOLERATING CLEAR DIET WELL; DENIES NAUSEA; PAIN MANGED PER EMAR. RA; WHEEZES IN LUNGS BILAT; REPORTS OCC SOB. UP IN RECLINER AND UP TO BSC WITH FWW, SBA AND GAIT BELT. REPOSITIONS SELF IN BED, ASSISTED PRN. SCD'S TO BLE'S. BED ALARM AND SIDE RAILS X3 FOR SAFETY. CALL LIGHT IN REACH; PT DEMONSTRATES USE. PT VOICED CONCERN OVER PLACEMENT, FINANCES AND CURRENT ABILITY FOR SELF-CARE; EUCATION ON RECOVERY POCESS AND PROGRESS AND PLAN FOR DISCHARGE DISCUSSED. PT STS SHE FEELS MUCH BETTER. WCTM UNTIL REPORT TO DAY SHIFT RN.
[2018-09-02 04:16] LABS: BASOPHILS ABSOLUTE AUTO 0.05 K/mm3 (0.00-0.23); BASOPHILS PERCENT AUTO 1 % (0-2); EOSINOPHILS ABSOLUTE AUTO 0.34 K/mm3 (0.00-0.68); EOSINOPHILS PERCENT AUTO 4 % (0-6); Hematocrit 33.6 % (33.0-51.0); Hemoglobin 10.8 g/dL (11.5-16.0); IMMATURE GRAN ABSOLUTE AUTO 0.27 K/mm3 (0.00-0.10); IMMATURE GRAN PERCENT AUTO 3 % (0-1); LYMPHOCYTES ABSOLUTE AUTO 1.45 K/mm3 (0.84-5.20); LYMPHOCYTES PERCENT AUTO 15 % (21-46); MONOCYTES ABSOLUTE AUTO 0.56 K/mm3 (0.16-1.47); MONOCYTES PERCENT AUTO 6 % (4-13); Mean Corpuscular HGB 31.2 pg (26.0-34.0); Mean Corpuscular HGB Conc 32.1 g/dL (31.5-36.5); Mean Corpuscular Volume 97 fL (80-100); NEUTROPHILS ABSOLUTE AUTO 7.05 K/mm3 (1.96-9.15); NEUTROPHILS PERCENT AUTO 73 % (41-73); Platelet Count 328 K/mm3 (150-400); RDW Coefficient Variation 15.4 % (11.7-14.2); RDW Standard Deviation 54.6 fL (35.1-46.3); Red Blood Cell Count 3.46 M/mm3 (3.80-5.20); White Blood Cell Count 9.72 K/mm3 (4.00-11.30)
[2018-09-02 04:56] LABS: Albumin, Blood 2.3 g/dL (3.4-5.0); Anion Gap 7 mmol/L (6-16); Blood Urea Nitrogen 10 mg/dL (8-24); Bun/Creatinine Ratio 12.4 (12.0-20.0); CO2, Blood 28 mmol/L (21-32); Calcium, Blood 7.5 mg/dL (8.5-10.1); Chloride, Blood 109 mmol/L (98-108); Creatinine, Blood 0.81 mg/dL (0.40-1.00); Glomerular Filtration Rate >60 (60-); Glucose, Blood 90 mg/dL (70-99); Phosphorus, Blood 2.5 mg/dL (2.5-4.9); Potassium, Blood 3.1 mmol/L (3.5-5.5); Sodium, Blood 144 mmol/L (136-145)
--- NOTE | 2018-09-02 08:01 | NUR ---
DR HALL IN TO SEE PT.
--- NOTE | 2018-09-02 09:57 | NUR ---
PT AMBULATING IN ROOM W/THERAPY
--- NOTE | 2018-09-02 10:42 | NUR ---
PERMISSION FOR CARE PATIENT GAVE STUDENT NURSE, KENNY LIU, PERMISSION ON 09-02-18 TO PROVIDE CARE ON 09-03-18 KENNY LIU
--- NOTE | 2018-09-02 12:26 | NUR ---
PT SITTING UP IN CHAIR EATING LUNCH. MEDS PROVIDED PER EMAR. CALL LIGHT IN REACH. OSMAR.
--- NOTE | 2018-09-02 14:29 | NUR ---
Patient has given me permission to care for her.
--- NOTE | 2018-09-02 17:13 | NUR ---
SUMMARY NO ACUTE CHANGES T/O SHIFT. PT SAT UP IN CHAIR AND AMBULATED IN TORRES TWICE DURING SHIFT USING FWW. DENIES PAIN. ADVANCED TO REGULAR DIET FOR LUNCH. HAS HAD NO C/O OF NAUSEA. OSTOMY BEEFY PINK AND PUTTING OUT SOFT BROWN STOOL. DR ISABEL SILVA'Gabbi KIESHA DRAIN THIS AM. MEDIPORE DRESSING TO MIDLINE ABDOMINAL INCISION. PT HAS STRESS INCONTINENCE, ATTENDS IN PLACE. USES CALL LIGHT FREQUENTLY TO ASK FOR ASSISTANCE W/TELEVISION.
--- NOTE | 2018-09-03 08:13 | NUR ---
SUMMARY PT INCONTINENT EACH TIME SHE IS TURNED FOR CHANGING.APPEARED POSSIBLE OVERFLOW. BLADDER SCAN WAS COMPLETED AND SHOWED GREATER THAN 1000 ML I CALLED KATE AND RECEIVED ORDER FOR IN/OUT CATH WHICH WAS DONE FOR 1300ML RETURN. PT INCONTINENT THIS AM WITH ANOTHER BLADDER SCAN CK AND AGAIN SHOWED GREATER THAN 1000 ML PER QUILL SKINNER REPORT.I SPOKE WITH DOCTOR AND ADVISED OF ABOVE WELL PT HX PRIOR TX OUTPT FOR UTI. RECEIVED ORDER FOR ANOTHER I/O CATH. DAY RN AWARE OF ORDER PER REPORT. PT DENIES DISTRESS EXCEPT OVER CONCERN OF INCONTINENCE. PT NOT FULLY APPEARING TO UNDERSTAND RETENTION AND OVERFLOW. OSTOMY WITH SOFT PASTY ALMANZAR STOOL. INC WITH OPENINGS BETWEEN LESLY WHICH PRIOR DAY RN REPORTED DR CHECKED AND UNCONCERNED. WELL ORDERS NOTED FOR GAUZE PLACEMENT IN OPENINGS.OPENINGS SHALLOW WHICH MAKE IT DIFFICULT TO KEEP GAUZE IN, BUT I DID ORDER DIRECTED APPROX 4 AM.
--- NOTE | 2018-09-03 12:55 | NUR ---
PATIENT GAVE STUDENT NURSE PERMISSION TO PERFORM CARE ON 09/04/18.
--- NOTE | 2018-09-03 18:47 | NUR ---
SUMMARY PT HAS DONE WELL TODAY. SHE IS TOLERATING A REGULAR DIET. NO C/O PAIN. DRSG C/D/I. PT IS A 1 ASSIST FOR TRANSFERS. SHE WORKED WITH PHYSICAL THERAPY THIS AM BUT DID REFUSE OT. PT IS CONCERNED ABOUT HER HOME LIFE AND IS FEARFUL OF OSTOMY BEING "FOREVER". REASSURANCE AND DISTRACTION PROVIDED PRN. PT STRAIGHT CATHED X 1. 1000 ML URINE NOTED. PT CONTINUES TO DENY NEED TO VOID. CALL LIGHT IN REACH, REPORT WILL BE GIVEN TO SHLOMO LOGAN
--- NOTE | 2018-09-04 00:50 | NUR ---
PT FOUND PULLING ON GOWN AND ID BAND. SMALL SPOTS OF BLOOD NOTED ON GOWN. 22G PIV FOUND PULLED OUT WITH CATH TIP INTACT. WHEN ASKED WHY SHE HAD PULLED ON IT AFTER NURSING REITERATING NEED TO LEAVE IT ALONE, SHE STATES THAT SHE JUST COULDN'T UNDERSTAND WHY SHE NEEDED IT ANYMORE, SO SHE TOOK IT OUT. NURSING INFORMED PT THAT A NEW PIV WOULD BE PLACED. VOICES UNDERSTANDING. SAFETY MEASURES IN PLACE. WILL CONTINUE TO MONITOR.
--- NOTE | 2018-09-04 14:43 | NUR ---
The pt. has given permission for student nurse to work with her and help to provide her care on 09/05/2018.
--- NOTE | 2018-09-04 14:57 | NUR ---
On 09/04/18 @4827 this patient gave this director industrial nursing verbal consent to care for her until 1730 as well as access chart
--- NOTE | 2018-09-04 23:00 | NUR ---
RECEIVED CALL FROM PT'S NEIGHBOR VENUS ASKING FOR AN UPDATEAS TO WHEN SHE WILL BE RELEASES AND WHERE SHE WILL BE RELEASED TO. SHE ASKED IF THE PT WOULD BE RELEASED TO SNF OR [facility]. SHE STATED THAT THE PT'S HOME WAS UNLIVABLE, SITEING THAT HER HOME WAS FULL OF GARBAGE AND THAT HE WATER WAS UNSAFE DUE TO THE SEPTIC SYSTEM SPILLING INTO HER WELL WATER. VENUS ALSO STATED THAT SHE WAS CARING FOR THE PT'S CATS, SHE SAID THAT ONE OF THE CATS HAD NOT BEEN THERE WHILE SHE WAS FEEDING THE OTHER TWO CATS. NURSING STATED THAT NOTHING HAD BEEN DECIDED AT THIS TIME, AND THANKED VENUS FOR CARING FOR PT'S CATS WHIEL SHE HAS BEEN IN THE HOSPITAL. VENUS GAVE HER HOME NUMBER OF , STATING THAT SHE WAS THE PERSON WHO HAD PROVIDED THE CONTACT INFO FOR THE PT'S SON WHO CURRENTLY RESIDES IN [place]. WILL CONTINUE TO MONITOR.
--- NOTE | 2018-09-05 05:25 | NUR ---
LYING IN SEMI FOWLRS WITH EYES CLOSED. HAS RESTED WELL THIS SHIFT. SMALL AMOUNT OF PUDDING CONSISTANCY BROWN BM NOTED WITH GAS IN OSTOMY BAG. MIDLINE INCISION IS PATENT. DRESSING IS C/D/I. LESS CONFUSION NOTED TONIGHT COMPARED TO PREVIOUS SHIFT. DENIES PAIN, N/V, OR OTHER DISCOMFORT. SENIES FUTHER NEEDS AT THIS TIME. SAFETY MEASURES IN PLACE. WILL GIVE HAND OFF TO ONCOMING SHIFT USING SBAR.
[2018-09-05 06:04] LABS: BASOPHILS ABSOLUTE AUTO 0.05 K/mm3 (0.00-0.23); BASOPHILS PERCENT AUTO 0 % (0-2); EOSINOPHILS ABSOLUTE AUTO 0.36 K/mm3 (0.00-0.68); EOSINOPHILS PERCENT AUTO 3 % (0-6); Hematocrit 37.6 % (33.0-51.0); IMMATURE GRAN ABSOLUTE AUTO 0.18 K/mm3 (0.00-0.10); IMMATURE GRAN PERCENT AUTO 2 % (0-1); LYMPHOCYTES ABSOLUTE AUTO 2.21 K/mm3 (0.84-5.20); LYMPHOCYTES PERCENT AUTO 20 % (21-46); MONOCYTES ABSOLUTE AUTO 0.69 K/mm3 (0.16-1.47); MONOCYTES PERCENT AUTO 6 % (4-13); Mean Corpuscular HGB 30.8 pg (26.0-34.0); Mean Corpuscular HGB Conc 31.9 g/dL (31.5-36.5); Mean Corpuscular Volume 96 fL (80-100); Mean Platelet Volume 8.8 fL (9.1-12.4); NEUTROPHILS ABSOLUTE AUTO 7.86 K/mm3 (1.96-9.15); NEUTROPHILS PERCENT AUTO 69 % (41-73); Platelet Count 423 K/mm3 (150-400); RDW Coefficient Variation 15.6 % (11.7-14.2); White Blood Cell Count 11.35 K/mm3 (4.00-11.30)
[2018-09-05 06:22] LABS: Anion Gap 8 mmol/L (6-16); Blood Urea Nitrogen 9 mg/dL (8-24); Bun/Creatinine Ratio 10.6 (12.0-20.0); CO2, Blood 27 mmol/L (21-32); Calcium, Blood 8.9 mg/dL (8.5-10.1); Chloride, Blood 108 mmol/L (98-108); Creatinine, Blood 0.85 mg/dL (0.40-1.00); Glomerular Filtration Rate >60 (60-); Glucose, Blood 87 mg/dL (70-99); Magnesium, Blood 2.1 mg/dL (1.6-2.4); Potassium, Blood 3.9 mmol/L (3.5-5.5); Sodium, Blood 143 mmol/L (136-145)
--- NOTE | 2018-09-05 06:55 | NUR ---
PT FOUND WITH BED SATURATED IN URINE, SHE IS A VERY HEAVY WETTER. STATED, I'M SORRY, I DIDN'T KNOW THAT I NEEDED TO GO WITH UP THE WATER, I JUST WOKE." PT BATHED AND FULL LINEN CHANGE COMPLTED AFTER MOVING PT TO THE CHAIR. COFFEE PROVIDED WITH CREAM PER HER REQUEST. DENIES FURTHER NEEDS AT THIS TIME. SAFETY MEASURES IN PLACE. WILL GIVE HAND OFF TO ONCOMING SHIFT USING SBAR.
--- NOTE | 2018-09-05 15:32 | NUR ---
Initial Visit: Palliative Care Consult for advance care planing. Pt is A&O x4 with intermitent periods of confusion. Pt reports 3/10 pain in her abdomen and states pain level is tolerable. Pt appears to be confused intermittently with topic of conversations and will engage in nonsensical responses. Example is when educating Pt on advanced directives and POLST Pt responds with "I want a nurse practitioner to take care of me" or "is there any training I can receive at [facility] so I can help take care of people". Pt reports she is of [employer] bo and would like a visit from a Recycling Operator. Pt denies anxiety and depression but reports feeling sad occasionally and worries about her cats. Discussed POLST further and Pt reports that she would like to consider completing POLST at a later time. Spoke with Pt's nurse Makenzie and she reports no concerns at this time. Precipitator notes report Pt is sceduled for SNF and [employer] reporting manager is in the process of pursuing other options for Pt once discharged from SNF. Plan is to help Pt with completing POLST when she is ready. Will remain available.
--- NOTE | 2018-09-05 16:08 | NUR ---
Late Entry from Initial Visit note. Pt reported that she like to do art. Initiated art therapy with her and gave her construction paper, pencil, and crayons. Pt expressed appreciation. Will remain available.
--- NOTE | 2018-09-06 06:38 | NUR ---
LYING IN SEMI FOWLRS WITH EYES CLOSED. HAS RESTED WELL THIS SHIFT. LARGE AMOUNT OF PUDDING CONSISTANCY BROWN BM NOTED WITH GAS IN OSTOMY BAG. MIDLINE INCISION IS PATENT. DRESSING IS C/D/I. LESS CONFUSION NOTED TONIGHT COMPARED TO PREVIOUS SHIFT. DENIES PAIN, N/V, OR OTHER DISCOMFORT. ASSITED TO COMMODE AND BACK TO BED, TOELRATED WELL. DENIES FUTHER NEEDS AT THIS TIME. SAFETY MEASURES IN PLACE. WILL GIVE HAND OFF TO ONCOMING SHIFT USING SBAR.
--- NOTE | 2018-09-06 14:35 | NUR ---
incision midline abd incision cleansed with soap and water and new medipore dressing applied. incision with every other staple in place. middle of incision with 1" area of wound edges appro 1/2 inch. rlq cleaned with soap and water and medipore applied- no draiange
--- NOTE | 2018-09-06 15:24 | NUR ---
1030 received telephone call from patients son who lives in the [facility] (abhilash Fajardo) per Abhilash his mother receives $1000.00 per month in social security. she owns her home but has outstanding debts of credit card $75,000 past due taxes $34,000 other debt of $15,000 per Abhilash patient does not have a will and she has not named a poa. patient has another son living in [place], [place] but per Abhilash he is going through a divorce and is bipolar and not able to assist his mother. discussed the above information with Suzanna Rangel RN care manager
--- NOTE | 2018-09-06 15:30 | NUR ---
phoned report to Devyn maria [facility]
--- NOTE | 2018-09-06 15:31 | NUR ---
photo taken of patients abd wound and placed in chart. black and white copy of photo placed in packet of paperwork to go to [facility] with patient
--- NOTE | 2018-09-06 16:37 | NUR ---
discharge discharged via wheelchair to [facility]
== END 2018-09-06 16:41 | DRG 853 ==
LOC: ER 17:00 → ICUW 20:49 → SURS 20:49 → ICUW 08-27 18:26 → SURS 08-28 17:45
PROVIDERS: Emergency Medicine; Internal Medicine; Internal Medicine Critical Care Medicine; Physician Assistant; Surgery; ADMIT Internal Medicine
PROC: 0D1L0Z4 Bypass Transverse Colon to Cutaneous, Open Approach (ICD-10-PCS; 2018-08-27)
PROC: 0DTG0ZZ Resection of Left Large Intestine, Open Approach (ICD-10-PCS; principal; 2018-08-27 13:00)
DX: A41.9 Sepsis, unspecified organism (principal); K63.1 Perforation of intestine (nontraumatic); J69.0 Pneumonitis due to inhalation of food and vomit; K65.8 Other peritonitis; E87.0 Hyperosmolality and hypernatremia; J98.11 Atelectasis; E86.0 Dehydration; I48.91 Unspecified atrial fibrillation; K66.8 Other specified disorders of peritoneum; R15.9 Full incontinence of feces; E83.39 Other disorders of phosphorus metabolism; E83.51 Hypocalcemia; F03.90 Unspecified dementia, unspecified severity, without behavioral disturbance, psychotic disturbance, mood disturbance, and anxiety; R06.89 Other abnormalities of breathing; R41.82 Altered mental status, unspecified; E03.9 Hypothyroidism, unspecified; K59.00 Constipation, unspecified; R32 Unspecified urinary incontinence; I10 Essential (primary) hypertension; R53.1 Weakness; R29.6 Repeated falls; E87.6 Hypokalemia; R62.7 Adult failure to thrive; R26.9 Unspecified abnormalities of gait and mobility; Z28.20 Immunization not carried out because of patient decision for unspecified reason; Z87.440 Personal history of urinary (tract) infections; Z91.81 History of falling; Z79.899 Other long term (current) drug therapy
CPT/HCPCS: 31720; 36415; 36600; 71045; 71046; 74177; 80048; 80053; 80069; 81001; 82803; 82947; 83605; 83735; 83880; 84439; 84443; 84481; 85025; 85027; 86850; 86900; 86901; 87040; 88307; 93005; 93010; 94002; 94003; 94640; 94760; 96361; 96365; 96375; 97110; 97116; 97162; 97167; 97530; 97535; 99285-25; C9113; J0610; J1100; J1650; J1940; J2270; J2370; J2405; J2543; J2710; J3010; J3480; J7030; J7060; J7120; P9041; P9046; Q9967

== ENCOUNTER → 2018-10-12 | Outpatient (CLI) | payer OTHER ==
[2018-10-12 23:14] LABS: Adenovirus Not Detected (NOT DETECT); Coronavirus 229E Not Detected (NOT DETECT); Coronavirus HKU1 Not Detected (NOT DETECT); Coronavirus NL63 Not Detected (NOT DETECT); Coronavirus OC43 Not Detected (NOT DETECT); Human Metapneumovirus Not Detected (NOT DETECT); Human Rhinovirus/Enterovirus Not Detected (NOT DETECT); Influenza A Not Detected (NOT DETECT); Influenza A/2009-H1 Detected (NOT DETECT); Influenza A/H1 Not Detected (NOT DETECT); Influenza A/H3 Not Detected (NOT DETECT); Influenza B Not Detected (NOT DETECT); Parainfluenza Virus 1 Not Detected (NOT DETECT); Parainfluenza Virus 2 Not Detected (NOT DETECT); Parainfluenza Virus 3 Not Detected (NOT DETECT)
[2018-10-12 23:15] LABS: Bordetella pertussis Not Detected (NOT DETECT); Chlamydophila pneumoniae Not Detected (NOT DETECT); Mycoplasma pneumoniae Not Detected (NOT DETECT); Parainfluenza Virus 4 Not Detected (NOT DETECT); Respiratory Syncytial Virus Not Detected (NOT DETECT)
== END | disposition home or self-care (01) ==
LOC: EDSTATUS 10:44 → LAB RH 13:30
PROVIDERS: Family Medicine
DX: J11.1 Influenza due to unidentified influenza virus with other respiratory manifestations (principal)
CPT/HCPCS: 87486; 87581; 87633; 87798

== ENCOUNTER → 2018-10-17 | Outpatient (CLI) | payer OTHER | LOC: LAB 18:43 → LAB SHORT 18:43 | DX: N39.0 Urinary tract infection, site not specified (principal) | CPT/HCPCS: 87077; 87086; 87186 ==

== ENCOUNTER 2018-10-29 12:30 | Emergency (ER) | payer OTHER ==
[~2018-10-29] VITALS: Ht 167.6 cm; Wt 90.7 kg
== END 2018-10-29 16:06 | disposition home or self-care (01) ==
LOC: ER 12:30
DX: S01.01XA Laceration without foreign body of scalp, initial encounter (principal); W18.30XA Fall on same level, unspecified, initial encounter; I10 Essential (primary) hypertension; E03.9 Hypothyroidism, unspecified; I48.91 Unspecified atrial fibrillation; F03.90 Unspecified dementia, unspecified severity, without behavioral disturbance, psychotic disturbance, mood disturbance, and anxiety; Z79.899 Other long term (current) drug therapy
CPT/HCPCS: 12002; 99283-25